=== PATIENT | female | born 1985 | race Caucasian/White ===

== ENCOUNTER 2016-02-19 13:19 | Emergency (ER) | payer BC, OTHER ==
[2016-02-19] MEDS ORDERED: Ondansetron INJ* 2 MG/ML VIAL IV ONE (13:52)
[2016-02-19] MEDS ORDERED: NS 0.9% 1000 ML* 1,000 ML BOLUS ONE (13:52)
--- NOTE | 2016-02-19 14:16 | UC ---
Abdominal Pain Female HPI - HPI Summary HPI Summary: 30 yo female with about a 2 day hx of n/vomiting and diarrhea. no f/c no abd pain no UTI symptoms about one week ago had a cough now is light headed and weak - History of Current Complaint Chief Complaint: UCGI Stated Complaint: VOMITING Time Seen by Provider: 02/19/16 13:46 Hx Obtained From: Patient Hx Last Menstrual Period: 02/08/16 Onset/Duration: Gradual Onset, Lasting Days Timing: Constant Severity Initially: Moderate Severity Currently: Moderate Pain Intensity: 0 Pain Scale Used: 0-10 Numeric Character: Cramping - when she vomits Aggravating Factor(s): Food Alleviating Factor(s): NPO Associated Signs and Symptoms: Positive: Cough - one week ago, Dizzy, Decreased Appetite, Nausea, Vomiting - 4x day, Diarrhea - 2x day. Negative: Diaphoresis, Fever, Chest Pain, Back Pain, Constipation, Blood in Stool, Urinary Symptoms, Vaginal Discharge Allergies/Adverse Reactions: Allergies Allergy/AdvReac Type Severity Reaction Status Date / Time Erythromycin Allergy GI Upset Verified 03/15/14 12:28 Home Medications: Home Medications Acetaminophen [Tylenol 8 Hour] 650 mg PO 02/19/16 [History] PMH/Surg Hx/FS Hx/Imm Hx Previously Healthy: Yes - Surgical History Surgical History: Yes Surgery Procedure, Year, and Place: tonsilectomy - Family History Known Family History: Positive: Hypertension - Social History Alcohol Use: Occasionally Substance Use Type: None Smoking Status (MU): Never Smoked Tobacco Have You Smoked in the Last Year: No Review of Systems Constitutional: Fatigue Skin: Negative Eyes: Negative ENT: Negative Respiratory: Negative Cardiovascular: Negative Gastrointestinal: Vomiting, Diarrhea Genitourinary: Negative Motor: Negative Neurovascular: Negative Musculoskeletal: Negative Neurological: Negative Psychological: Negative All Other Systems Reviewed And Are Negative: Yes Physical Exam Triage Information Reviewed: Yes Appearance: Well-Appearing, No Pain Distress, Well-Nourished, Thin Vital Signs: Initial Vital Signs Temp 97.8 F 02/19/16 13:38 Pulse 82 02/19/16 13:38 Resp 18 02/19/16 13:38 BP 98/70 02/19/16 13:38 Pulse Ox 97 02/19/16 13:38 Vital Signs Reviewed: Yes Eyes: Positive: Conjunctiva Clear, Other: - anicteric sclera ENT: Positive: Hearing grossly normal, Other: - dry lips/moist intra oral mucous membranes. Negative: Nasal congestion, Nasal drainage, Tonsillar swelling, Tonsillar exudate, Trismus Neck: Positive: Supple, Nontender, No Lymphadenopathy Respiratory: Positive: Lungs clear, Normal breath sounds, No respiratory distress, No accessory muscle use. Negative: Respiratory distress Cardiovascular: Positive: RRR, No Murmur. Negative: Tachycardia, Bradycardia Abdomen Description: Positive: Nontender, Soft. Negative: CVA Tenderness (R), CVA Tenderness (L) Bowel Sounds: Positive: Present Musculoskeletal: Positive: Strength Intact, ROM Intact, No Edema Neurological: Positive: Alert Psychological Exam: Normal Skin Exam: Normal Re-Evaluation - Re-Evaluation First Eval Re-Evaluation Time: 14:15 Change: Improved - feels a little better Abd Pain Female Course/Dx - Course Course Of Treatment: sign out to Dr. Tena at 2:30pm. d/c if better after fluids - Differential Dx/Diagnosis Provider Diagnoses: acute gastroenteritis. dehydration Discharge - Discharge Plan Condition: Improved Disposition: HOME Patient Education Materials: Gastroenteritis (ED) Forms: *Work Release Referrals: Stef Flores MD [Primary Care Provider] - If Needed Additional Instructions: recheck for new or worsening symptoms recheck tomorrow if not better
[2016-02-19 15:07] VITALS: BP 94/63
== END 2016-02-19 15:08 | disposition home or self-care (01) ==
LOC: UCEAST 13:19
DX: K52.9 Noninfective gastroenteritis and colitis, unspecified (principal); E86.0 Dehydration; Z32.02 Encounter for pregnancy test, result negative; Z88.1 Allergy status to other antibiotic agents
CPT/HCPCS: 81002; 81025; 96360; 96361; 96374; 99212; G0463; J2405

== ENCOUNTER 2016-02-24 07:12 | Emergency (ER) | payer SELFPAY ==
[2016-02-24 07:42] VITALS: BP 116/65
[2016-02-24] MEDS ORDERED: Ibuprofen TAB* 600 MG PO ONE (07:59)
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
== END 2016-02-24 10:40 | disposition home or self-care (01) ==
LOC: UCEAST 07:12
DX: S16.1XXA Strain of muscle, fascia and tendon at neck level, initial encounter (principal); V43.52XA Car driver injured in collision with other type car in traffic accident, initial encounter; Y93.89 Activity, other specified; Y92.410 Unspecified street and highway as the place of occurrence of the external cause; R07.81 Pleurodynia; Z32.02 Encounter for pregnancy test, result negative; Z88.1 Allergy status to other antibiotic agents
CPT/HCPCS: 72050; 81002; 81025; 87086; 99213; A9270-GY; G0463

== ENCOUNTER 2016-05-10 09:04 | Emergency (ER) | payer BC ==
[2016-05-10 09:16] VITALS: BP 100/67
--- NOTE | 2016-05-10 10:43 | UC ---
Ear Complaint HPI - HPI Summary HPI Summary: LEFT EAR PAIN, CLOGGED FOR THREE DAYS. FREQUENT EAR INFECTIONS A CHILD. - History of Current Complaint Chief Complaint: UCEar Stated Complaint: EAR PAIN Time Seen by Provider: 05/10/16 10:00 Hx Obtained From: Patient Jason Last Menstrual Period: 05/03/16 Onset/Duration: Gradual Onset, Lasting Days, Still Present Severity Initially: Moderate Severity Currently: Moderate Associated Signs/Symptoms: Positive: URI Symptoms - Allergies/Home Medications Allergies/Adverse Reactions: Allergies Allergy/AdvReac Type Severity Reaction Status Date / Time Erythromycin Allergy GI Upset Verified 05/10/16 09:17 PMH/Surg Hx/FS Hx/Imm Hx Previously Healthy: Yes Neurological History Of: Reports: Migraine - Resolved 10 years ago after seeing chiropractor - Surgical History Surgical History: Yes Surgery Procedure, Year, and Place: tonsilectomy - Family History Known Family History: Positive: Hypertension Negative: Cardiac Disease, Diabetes - Social History Occupation: Employed Full-time Lives: With Family Alcohol Use: Occasionally Substance Use Type: None Smoking Status (MU): Never Smoked Tobacco Have You Smoked in the Last Year: No Review of Systems Constitutional: Negative Skin: Negative Eyes: Negative ENT: Ear Ache Respiratory: Negative Cardiovascular: Negative Gastrointestinal: Negative Genitourinary: Negative Motor: Negative Neurovascular: Negative Musculoskeletal: Negative Neurological: Negative Psychological: Negative All Other Systems Reviewed And Are Negative: Yes Physical Exam Triage Information Reviewed: Yes Appearance: Well-Appearing, No Pain Distress, Well-Nourished Vital Signs: Initial Vital Signs Temp 98.6 F 05/10/16 09:11 Pulse 68 05/10/16 09:11 Resp 16 05/10/16 09:11 BP 100/67 05/10/16 09:11 Pulse Ox 98 05/10/16 09:11 Eye Exam: Normal ENT: Positive: Pharynx normal, TM dull, TM red, Other: - LEFT EXTERNAL AUDITORY CANAL ERRETHEMA EDEMA Dental Exam: Normal Neck exam: Normal Respiratory Exam: Normal Respiratory: Positive: Chest non-tender, Lungs clear, Normal breath sounds, No respiratory distress Cardiovascular Exam: Normal Abdominal Exam: Normal Abdomen Description: Positive: Nontender, No Organomegaly Musculoskeletal Exam: Normal Neurological Exam: Normal Psychological Exam: Normal Skin Exam: Normal Ear Complaint Course/Dx - Differential Dx/Diagnosis Differential Diagnosis/HQI/PQRI: Cellulitis, Otitis Externa, Otitis Media, Perforated TM, URI Provider Diagnoses: LEFT OTITIS MEDIA. LEFT OTITIS EXTERNA Discharge - Discharge Plan Condition: Stable Disposition: HOME Prescriptions: Amoxicillin/Clavulanate TAB* [Augmentin TAB 875*] 875 mg PO BID #20 tab Neomyc/Polym/HC 1% OTIC SUSP* [Cortisporin Otic Susp 1%*] 4 drop LEFT EAR TID # 1 btl Patient Education Materials: Otitis Externa (ED), Otitis Media (ED) Referrals: Stef Flores MD [Primary Care Provider] -
== END 2016-05-10 10:38 | disposition home or self-care (01) ==
LOC: UCEAST 09:04
DX: H66.92 Otitis media, unspecified, left ear (principal); H60.92 Unspecified otitis externa, left ear; Z88.3 Allergy status to other anti-infective agents
CPT/HCPCS: 99212; G0463

== ENCOUNTER 2016-05-14 12:02 | Emergency (ER) | payer BC ==
[2016-05-14 14:15] VITALS: BP 130/71
--- NOTE | 2016-05-14 14:41 | UC ---
Ear Complaint HPI - HPI Summary HPI Summary: continued head ache and left ear congestion some vertigo sensation. - History of Current Complaint Chief Complaint: UCEar Stated Complaint: EAR PAIN Time Seen by Provider: 05/14/16 14:35 Hx Obtained From: Patient Hx Last Menstrual Period: 05/03/16 ?: No Onset/Duration: Gradual Onset, Lasting Days, Still Present Severity Initially: Moderate Severity Currently: Moderate Pain Intensity: 5 Pain Scale Used: 0-10 Numeric - Allergies/Home Medications Allergies/Adverse Reactions: Allergies Allergy/AdvReac Type Severity Reaction Status Date / Time Erythromycin Allergy GI Upset Verified 05/10/16 09:17 PMH/Surg Hx/FS Hx/Imm Hx Previously Healthy: Yes Neurological History Of: Reports: Migraine - Resolved 10 years ago after seeing chiropractor - Surgical History Surgical History: Yes Surgery Procedure, Year, and Place: tonsilectomy - Family History Known Family History: Positive: Hypertension Negative: Cardiac Disease, Diabetes - Social History Occupation: Employed Full-time - house keeper at [employer] Lives: With Family Alcohol Use: Occasionally Substance Use Type: None Smoking Status (MU): Never Smoked Tobacco Have You Smoked in the Last Year: No Review of Systems Constitutional: Negative Skin: Negative Eyes: Negative ENT: Ear Ache Respiratory: Cough Cardiovascular: Negative Gastrointestinal: Negative Genitourinary: Negative Motor: Negative Neurovascular: Negative Musculoskeletal: Negative Neurological: Negative Psychological: Negative All Other Systems Reviewed And Are Negative: Yes Physical Exam Triage Information Reviewed: Yes Appearance: Well-Appearing, No Pain Distress, Thin Vital Signs: Initial Vital Signs Temp 98.3 F 05/14/16 14:11 Pulse 85 05/14/16 14:11 Resp 18 05/14/16 14:11 BP 130/71 05/14/16 14:11 Pulse Ox 99 05/14/16 14:11 Vital Signs Reviewed: Yes Eye Exam: Normal Eyes: Positive: Conjunctiva Clear ENT Exam: Normal ENT: Positive: Normal ENT inspection, Hearing grossly normal, Pharynx normal, Nasal congestion, Nasal drainage, TMs normal. Negative: Tonsillar swelling, Tonsillar exudate, Trismus, Muffled/hoarse voice Dental Exam: Normal Neck exam: Normal Neck: Positive: Supple, Nontender, No Lymphadenopathy Respiratory Exam: Normal Respiratory: Positive: Chest non-tender, Lungs clear, Normal breath sounds, No respiratory distress, No accessory muscle use Cardiovascular Exam: Normal Cardiovascular: Positive: RRR, No Murmur, Pulses Normal, Brisk Capillary Refill Musculoskeletal Exam: Normal Musculoskeletal: Positive: Strength Intact, ROM Intact, No Edema Neurological Exam: Normal Neurological: Positive: Alert, Muscle Tone Normal Psychological Exam: Normal Skin Exam: Normal Ear Complaint Course/Dx - Course Course Of Treatment: add mucinex D, increase fluids, finish antibiodics follow with pcp - Differential Dx/Diagnosis Differential Diagnosis/HQI/PQRI: Cellulitis, Otitis Externa, Otitis Media, Pharyngitis, URI Provider Diagnoses: Sinusitis Discharge - Discharge Plan Condition: Stable Disposition: HOME Prescriptions: Ibuprofen TAB* [Motrin TAB* 600 MG] 600 mg PO Q6H PRN #40 tab PRN Reason: pain Patient Education Materials: Decongestant/Expectorant (By mouth), Ibuprofen ( By mouth), Rhinosinusitis (ED) Referrals: Stef Flores MD [Primary Care Provider] - 5 Days
== END 2016-05-14 14:54 | disposition home or self-care (01) ==
LOC: UCEAST 12:02
DX: J32.9 Chronic sinusitis, unspecified (principal); G43.909 Migraine, unspecified, not intractable, without status migrainosus; I10 Essential (primary) hypertension; Z88.3 Allergy status to other anti-infective agents
CPT/HCPCS: 99212; G0463

== ENCOUNTER 2016-12-12 11:14 | Emergency (ER) | payer BC ==
[2016-12-12 13:04] VITALS: BP 112/70
--- NOTE | 2016-12-12 13:08 | UC ---
Skin Complaint HPI - HPI Summary HPI Summary: Pt presents with a painful raised red area on the back of her head. Started 2 days ago. Getting increasingly painful and larger in size. Hx of MRSA. - History of Current Complaint Chief Complaint: UCSkin Time Seen by Provider: 12/12/16 13:08 Stated Complaint: LUMP ON HEAD Hx Obtained From: Patient Hx Last Menstrual Period: 12/05/16 ?: No Onset/Duration: Sudden Onset Skin Exposure Onset/Duration: Days Ago Timing: Constant Onset Severity: Moderate Current Severity: Moderate Pain Intensity: 5 Pain Scale Used: 0-10 Numeric Character: Redness, Raised, Painful Aggravating Factor(s): Touch Alleviating Factor(s): Nothing Associated Signs & Symptoms: Negative: Nausea, Vomiting, Fever, Chills, Drainage , Red Streaks - Allergy/Home Medications Allergies/Adverse Reactions: Allergies Allergy/AdvReac Type Severity Reaction Status Date / Time Erythromycin Allergy GI Upset Verified 12/12/16 13:01 Review of Systems Constitutional: Negative Skin: Other - Raised, tender, red area on back of head ENT: Negative Respiratory: Negative Cardiovascular: Negative Is Patient Immunocompromised?: No All Other Systems Reviewed And Are Negative: Yes PMH/Surg Hx/FS Hx/Imm Hx - Additional Past Medical History Additional PMH: Hx of MRSA Previously Healthy: Yes - Surgical History Surgical History: Yes Surgery Procedure, Year, and Place: tonsilectomy - Family History Known Family History: Positive: Hypertension Negative: Cardiac Disease, Diabetes - Social History Occupation: Employed Full-time Lives: With Family Alcohol Use: Occasionally Substance Use Type: None Smoking Status (MU): Never Smoked Tobacco Have You Smoked in the Last Year: No Physical Exam Triage Information Reviewed: Yes Appearance: Well-Appearing, Thin Vital Signs: Initial Vital Signs Temp 98 F 12/12/16 13:02 Pulse 83 12/12/16 13:02 Resp 15 12/12/16 13:02 BP 112/70 12/12/16 13:02 Pulse Ox 99 12/12/16 13:02 Vital Signs Reviewed: Yes Neck: Positive: Supple, Nontender, No Lymphadenopathy Respiratory: Positive: Chest non-tender, Lungs clear, Normal breath sounds Cardiovascular: Positive: RRR, No Murmur Skin: Positive: Other - Approx 1.5cm abscess on the occipital region of the scalp. No discharge Course/Dx - Course Course Of Treatment: Abscess does not appear to be ready for I&D. Pt has a hx of MRSA infection, will treat with Bactrim and advise to f/u if area does not resolve. - Differential Diagnoses - Skin Complaint Differential Diagnoses: Abscess, Cellulitis, Head Lice, MRSA - Diagnoses Provider Diagnoses: Skin Abscess scalp Discharge - Discharge Plan Condition: Stable Disposition: HOME Prescriptions: Sulfamethox/Trimethoprim DS* [Bactrim DS 800/160 TAB*] 1 tab PO BID #20 tab Patient Education Materials: Abscess (ED), Folliculitis (ED) Referrals: No Primary Care Phys,NOPCP [Primary Care Provider] - Additional Instructions: If the area increases in size, pain, or redness despite antibiotic therapy - please call our office or go to ED. If you develop a fever, chest pain, SOB, new or worsening symptoms - please call our office or go to ED.
== END 2016-12-12 13:31 | disposition home or self-care (01) ==
LOC: UCEAST 11:14
DX: L02.811 Cutaneous abscess of head [any part, except face] (principal); Z86.14 Personal history of Methicillin resistant Staphylococcus aureus infection; Z88.1 Allergy status to other antibiotic agents
CPT/HCPCS: 99212; G0463